=== PATIENT | male | born 1945 | race Caucasian/White ===

== ENCOUNTER 2019-06-12 07:35 | Inpatient (IN) | payer OTHER ==
[~2019-06-12] VITALS: Ht 190.5 cm; Wt 128.6 kg
[~2019-06-12 07:35] MED LIST: METO-5 PO
[2019-06-12 08:12] LABS: Basophils # (auto) 0.1 uL; Basophils % (auto) 0.8 % (0.0-2.0); Eosinophils # (auto) 0 uL; Eosinophils % (auto) 0.3 % (0.0-7.0); Hematocrit 37.3 % (41.0-53.0); Hemoglobin 12.1 g/dL (13.5-17.5); Lymphocytes # (auto) 0.8 uL; Lymphocytes % (auto) 9.7 % (10.0-50.0); Mean Corpuscular Hemoglobin 28.1 pg (28.0-32.0); Mean Corpuscular Hgb Conc. 32.5 g/dL (32.0-36.0); Mean Corpuscular Volume 86.3 fL (80.0-100.0); Monocytes # (auto) 0.5 uL; Monocytes % (auto) 6.3 % (0.0-12.0); Neutrophils # (auto) 6.6 uL; Neutrophils % (auto) 82.9 % (37.0-80.0); Platelet Count (auto) 407 10^3/uL (140-450); Red Blood Cells 4.32 10^6/uL (4.5-5.90); Red Cell Distribution Width 14.8 % (11.8-14.3)
[2019-06-12 08:26] LABS: Anion Gap 5 (5-15); Blood Urea Nitrogen 18 mg/dL (7-18); Calcium 8.8 mg/dL (8.5-10.1); Carbon Dioxide 32 mmol/L (21-32); Chloride 104 mmol/L (98-107); Glucose 107 mg/dL (74-106); Magnesium 2.1 mg/dL (1.6-2.6); Potassium 5.1 mmol/L (3.5-5.1); Sodium 141 mmol/L (136-145)
[2019-06-12 08:29] LABS: INR 1.06 (0.9-1.15); Partial Thromboplastin Time 28.5 sec (23.64-32.05)
[2019-06-12 08:32] LABS: Alanine Aminotransferase 25 U/L (16-61); Alkaline Phosphatase 74 U/L (45-117); Aspartate Aminotransferase 28 U/L (15-37); BUN/Creatinine Ratio 16.7; Bilirubin, Total 1.6 mg/dL (0.2-1.0); GFR African American 86 mL/min; GFR Non-African American 71 mL/min; Total Protein 8.4 g/dL (6.4-8.2)
[2019-06-12 09:02] LABS: Urine Bacteria NONE SEEN /hpf (None Seen); Urine Blood Negative /uL (Negative); Urine Mucus FEW (None Seen); Urine Specific Gravity 1.015 (1.001-1.035); Urine WBC 1 /hpf (0 - 3)
[2019-06-12] MEDS ORDERED: HYDROcodone-ACET 5/325MG TAB PO PRN (17:45)
[2019-06-12] MEDS ORDERED: ONDANSETRON HCL 4 MG/2 ML VIAL IV PRN (17:45)
[2019-06-12] MEDS ORDERED: ACETAMINOPHEN 500 MG TAB PO PRN (17:45)
[2019-06-12] MEDS ORDERED: SODIUM CHLORIDE 0.9% 1,000 ML IV ONE (17:45)
[2019-06-12] MEDS ORDERED: MORPHINE SULF INJ 2 MG/ML SYRINGE 1ML IV PRN ×2 (17:45)
[2019-06-12] MEDS ORDERED: DOCUSATE SOD 100 MG CAP PO PRN (17:45)
[2019-06-12] MEDS ORDERED: NITROGLYCERIN 0.4 MG SL TAB SL PRN (17:45)
--- NOTE | 2019-06-12 19:55 | NUR ---
Telemetry admit from [facility] admitted to Telemetry unit. Patient oriented to Marci BrownRN primary RN, unit, room, bed, and unit policies regarding patient care and visiting hours. Patient now on continuous telemetry monitoring, tele box #74 and telemetry reading on arrival to unit is NSR. AAOx4. No acute S/S of distress, SOB or pain. On room air and ambulatory. Small scabs to left leg and ankle noted. Band aid and gauze dressings CDI. Patient weighed by bed scale and encouraged to call if they need something. All questions and concerns addressed, patient verbalized understanding. Bed in lowest locked position, side rails up x2, call light within reach. Will continue to monitor every hour and as needed.
[2019-06-12] MEDS ORDERED: LEVO25TA6 PO (21:14)
[2019-06-12] MEDS ORDERED: LISI10TA6 PO (21:14)
[2019-06-12] MEDS ORDERED: [UNRECOGNIZED DRUG - CODE] PO (21:14)
[2019-06-12 22:00] VITALS: BP 146/84
[2019-06-12] MEDS: METOPROLOL TARTRATE 25 MG TAB PO SCH (22:20)
[2019-06-13 05:00] VITALS: BP 127/72
--- NOTE | 2019-06-13 06:31 | NUR ---
Spoke with family member Son, Gio called from [place] requesting information on patient status. Asked to please be informed after doctor rounds on patient to know the POC. Told son I would relay to [facility] RN to call him at [phone] with updated information.
--- NOTE | 2019-06-13 07:48 | NUR ---
Opening Shift Note Assumed care of patient, awake and alert. No S/S of distress/SOB or pain. Instructed on POC and to call for assist PRN, will continue to monitor for changes Q1hr and PRN.
[2019-06-13 08:57] VITALS: BP 137/67
[2019-06-13] MEDS: FAMOTIDINE 20 MG TAB PO SCH (10:10)
[2019-06-13] MEDS: ASPirin 81 mg TAB PO SCH (10:10)
[2019-06-13] MEDS: METOPROLOL TARTRATE 25 MG TAB PO SCH ×2 (10:10→21:49)
--- NOTE | 2019-06-13 11:00 | NUR ---
PT REFUSING TO LET RN ASSESS WOUNDS ON FEET UNDER DRESSING
[2019-06-13 13:00] VITALS: BP 120/58
--- NOTE | 2019-06-13 16:43 | NUR ---
assessment Patient is a 74 year old male who is alert and oriented. Patients cognitive abilities are intact. Prior to admission patient lived home alone and functioned independently. Patient informed me he is able to care for his own ADLs. Per patient he is requesting SNF on discharge due to weakness. Patient to be assessed by PT. Patient informed me he has a fww and a cane for home use. Patients PCP is Dr Perez. I informed patient he has a right to speak to a 7th grade social studies teacher regarding all care. I informed patient he has a right to participate in any and all discharge planning. Patient has a POA and advanced directive. Patient verbalized understanding and agreed to discharge plan. Addendum: 06/13/19 at 1645 by Ann Marie RAMOS Amended: Links added.
[2019-06-13 16:54] VITALS: BP 118/63
--- NOTE | 2019-06-13 18:00 | NUR ---
PT ALLOWED RN TO ASSESS DRESSING NO OPEN WOUNDS UNDER FEET. DRY SCABS AROUND HEEL. PT STATES HE CLEANS THEM WITH SALINE.
--- NOTE | 2019-06-13 19:00 | NUR ---
OPENING NOTE- NOC SHIFT PATIENT IS ALERT AND ORIENTED X3, UNABLE TO STATE CORRECT DATE/YEAR. PATIENT IS IN BED. BED IS LOCKED IN LOWEST POSITION, BEDSIDE TABLE WITHIN REACH, PERSONAL BELONGINGS WITHIN REACH. DISCUSSED POC WITH PATIENT AND INSTRUCTED PATIENT TO CALL PRN; PATIENT VERBALIZED UNDERSTANDING. PATIENT SMELLS LIKE URINE, WILL PROVIDE BED BATH AND CHANGE BED LINEN. PATIENT HAS URINAL AT BEDSIDE BUT HAS TROUBLE USING IT BECAUSE HIS PENIS RETRACTS; INSTRUCTED PATIENT TO CALL FOR HELP USING URINAL. WILL CONTINUE TO MONITOR Q1H AND PRN.
--- NOTE | 2019-06-13 19:20 | NUR ---
BED BATH AND COMPLETE LINEN CHANGE WITH HELP OF NURSE WEED ERADICATOR RAFAELA. PATIENT TOLERATED WELL.
--- NOTE | 2019-06-13 19:55 | NUR ---
ORTHOSTATIC BP PATIENT UNABLE TO STAND UP FOR ORTHOSTATIC BP ORDERED BY MD. BP WAS TAKEN SUPINE 134/75. 3 MINUTES LATER BP WAS TAKEN SITTING IN BED, DANGLING FEET 141/85.
[2019-06-13 20:00] VITALS: BP 139/75
[2019-06-13] MEDS ORDERED: LORazepam 2MG/ML-1ML VIAL IV PRN (20:00)
--- NOTE | 2019-06-13 20:00 | NUR ---
DR MONAE AT BEDSIDE
--- NOTE | 2019-06-13 20:11 | NUR ---
PATIENT REFUSES PSYCH CONSULTATION PATIENT STATES THAT HE DOES NOT WANT TO SEE A PSYCHIATRIST, HE STATES THAT ALL THEY WANT TO KNOW IS ABOUT HIS REFUSED. DR MONAE AWARE.
[2019-06-13 21:57] LABS: Folate (Folic Acid) 15.73 ng/mL (5.38-24)
[2019-06-13 22:00] VITALS: BP_SYST 139; BP_SYST 141; BP_DIAS 75; BP_DIAS 85
--- NOTE | 2019-06-13 23:54 | NUR ---
PATIENT IS REQUESTING HELP FOR USE OF URINAL APPROX EVERY 40 MINUTES. OUTPUT PER USE IS APPROX [id number] MLS.
[2019-06-14] VITALS (7 sets, daily range): BP systolic 118–156; BP diastolic 62–91
--- NOTE | 2019-06-14 05:00 | NUR ---
UNABLE TO OBTAIN ORTHOSTATIC BP PATIENT IS UNABLE TO STAND; PATIENT REPORTS THAT HE FEELS WEAK AT THE KNEES AND STATES THAT HE DOES NOT HAVE ENOUGH STRENGTH TO STAY UP. BP WAS TAKEN LAYING SUPINE POSITION 141/70, 3 MINUTES LATER BP WAS TAKEN SITTING AT EDGE OF BED DANGLING FEET 135/68.
[2019-06-14 06:33] LABS: Basophils # (auto) 0 uL; Basophils % (auto) 0.5 % (0.0-2.0); Eosinophils # (auto) 0 uL; Eosinophils % (auto) 0.5 % (0.0-7.0); Hematocrit 39.1 % (41.0-53.0); Hemoglobin 12.8 g/dL (13.5-17.5); Lymphocytes % (auto) 11.3 % (10.0-50.0); Mean Corpuscular Hemoglobin 28.3 pg (28.0-32.0); Mean Corpuscular Hgb Conc. 32.8 g/dL (32.0-36.0); Mean Corpuscular Volume 86.3 fL (80.0-100.0); Monocytes # (auto) 0.8 uL; Monocytes % (auto) 8.2 % (0.0-12.0); Neutrophils # (auto) 7.4 uL; Neutrophils % (auto) 79.5 % (37.0-80.0); Platelet Count (auto) 391 10^3/uL (140-450); Red Blood Cells 4.53 10^6/uL (4.5-5.90); Red Cell Distribution Width 14.5 % (11.8-14.3); White Blood Cell 9.3 10^3/uL (4.4-10.8)
[2019-06-14 07:05] LABS: Potassium 4.6 mmol/L (3.5-5.1)
[2019-06-14 07:10] LABS: BUN/Creatinine Ratio 20.2; Calcium 8.2 mg/dL (8.5-10.1); Magnesium 1.9 mg/dL (1.6-2.6)
--- NOTE | 2019-06-14 07:10 | NUR ---
ENDORSED PATIENT CARE TO DAY SHIFT NURSE AMINA REYES. NO S/SX OF DISTRESS, SOB OR PAIN.
--- NOTE | 2019-06-14 09:50 | NUR ---
UPDATED MARV BOSE ON POC. PASSWORD VERIFIED.
[2019-06-14] MEDS: ASPirin 81 mg TAB PO SCH (10:17)
[2019-06-14] MEDS: METOPROLOL TARTRATE 25 MG TAB PO SCH ×2 (10:18→21:50)
[2019-06-14] MEDS: FAMOTIDINE 20 MG TAB PO SCH (10:18)
--- NOTE | 2019-06-14 12:35 | NUR ---
ROUNDING MD. JAY AT BEDSIDE. ALL QUESTIONS AND CONCERNS ADDRESSED AT THIS TIME.
--- NOTE | 2019-06-14 15:07 | NUR ---
re-assessment Per consult living condition. Please see my initial assessment dated 06/13/19. Addendum: 06/14/19 at 1515 by Ann Marie Bloom Amended: Links added.
--- NOTE | 2019-06-14 19:20 | NUR ---
OPENING NOTE- NOC SHIFT PATIENT IS RESTING COMFORTABLE IN BED. NO S/SX OF DISTRESS, SOB OR PAIN. BEDSIDE TABLE WITHIN REACH, CALL LIGHT WITHIN REACH. DISCUSSED POC WITH PATIENT AND INSTRUCTED PATIENT TO CALL PRN; PATIENT VERBALIZES UNDERSTANDING. WILL CONTINUE TO MONITOR Q1H AND PRN.
[2019-06-15 05:18] VITALS: BP 138/70
[2019-06-15 08:06] LABS: Immunoglobulin G, Serum 2150 mg/dL (700-1600)
[2019-06-15 09:00] VITALS: BP 129/72
[2019-06-15] MEDS: ASPirin 81 mg TAB PO SCH (09:05)
[2019-06-15] MEDS: FAMOTIDINE 20 MG TAB PO SCH (09:06)
[2019-06-15] MEDS: METOPROLOL TARTRATE 25 MG TAB PO SCH (09:06)
[2019-06-15] MEDS ORDERED: CYANOCOBALAMIN (B-12) 1000 MCG/1 ML VIAL IM ONE (09:15)
[2019-06-15] MEDS ORDERED: CYANOCOBALAMIN 500 MCG TAB PO SCH (10:00)
--- NOTE | 2019-06-15 11:38 | NUR ---
SNF per Mayuri Adams at [facility], pt can go to [facility] rm [id number]. Ann Marie RAMOS is assisting me with transport of this pt to [facility]. Ann Marie stated she would set up transport for 1400 hrs
[2019-06-15 13:00] VITALS: BP 126/70
--- NOTE | 2019-06-15 14:30 | NUR ---
CALLED REPORT TO AMINA ROQUE.
--- NOTE | 2019-06-15 14:47 | NUR ---
PATIENT TRANSFERRED BY JORGE ALBERTO WITH [facility] TO [facility]. ALL BELONGINGS TAKEN WITH PATIENT.
--- NOTE | 2019-06-15 16:10 | NUR ---
Discharge planning per consult, patient has orders to dc to SNF. Referral sent by the [facility] to [facility]. Placed a follow up call, spoke with Berenice and was advised that they are accepting the patient into room 37 bed A. She was awaiting the Health Plans following provider information. Transportation was arranged with [facility] and grain picker was schedule for 3pm. Nurse was advised of dc plan. Addendum: 06/15/19 at 1613 by PINKY BALDWIN Amended: Links added.
== END 2019-06-15 14:30 | DRG 312 ==
LOC: EDBD 07:35 → ER 07:41 → TELE 07:42 → TELE-WESTW 20:27
PROVIDERS: ADMIT Nurse Practitioner Acute Care; ATTEND Internal Medicine
DX: R55 Syncope and collapse (principal); D68.59 Other primary thrombophilia; M86.60 Other chronic osteomyelitis, unspecified site; I48.20 Chronic atrial fibrillation, unspecified; I48.0 Paroxysmal atrial fibrillation; R62.7 Adult failure to thrive; I10 Essential (primary) hypertension; E66.9 Obesity, unspecified; D64.9 Anemia, unspecified; L97.509 Non-pressure chronic ulcer of other part of unspecified foot with unspecified severity; Z60.2 Problems related to living alone; E03.9 Hypothyroidism, unspecified; E05.90 Thyrotoxicosis, unspecified without thyrotoxic crisis or storm; F17.200 Nicotine dependence, unspecified, uncomplicated; F22 Delusional disorders; G89.29 Other chronic pain; Z68.35 Body mass index [BMI] 35.0-35.9, adult; Z79.899 Other long term (current) drug therapy
CPT/HCPCS: 36415; 70450; 70551; 71045; 72131; 80048; 80053; 81001; 82607; 82746; 82784; 83036; 83735; 84443; 84484; 85025; 85610; 85730; 86334; 93005; 93306; 93886; 96360; 97110; 97116; 97530; G0378

== ENCOUNTER 2021-04-19 14:37 | Emergency (ER) | payer MEDICARE, OTHER ==
[~2021-04-19] VITALS: Ht 188 cm; Wt 131.1 kg
[~2021-04-19 14:37] MED LIST changes: +LEVO25TA6 PO; +LISI-716 PO; -METO-5 PO; +METO1TAB77 PO; +[UNRECOGNIZED DRUG - CODE] PO
[2021-04-19 15:18] LABS: Basophils # (auto) 0 10 ^3/uL (0-0.2); Eosinophils # (auto) 0.6 10 ^3/uL (0-0.8); Hemoglobin 10.6 g/dL (13.5-17.5); Lymphocytes # (auto) 1.6 10 ^3/uL (0.4-5.4); Monocytes # (auto) 0.5 10 ^3/uL (0-1.3); Neutrophils # (auto) 3.9 10 ^3/uL (1.6-8.6); Nucleated Red Blood Cells % 0.1 %
[2021-04-19 15:21] LABS: Basophils % (auto) 0.2 % (0.0-2.0); Eosinophils % (auto) 8.5 % (0.0-7.0); Hematocrit 33.8 % (41.0-53.0); Mean Corpuscular Hemoglobin 26.3 pg (28.0-32.0); Mean Corpuscular Hgb Conc. 31.3 g/dL (32.0-36.0); Monocytes % (auto) 7.2 % (0.0-12.0); Neutrophils % (auto) 60.1 % (37.0-80.0); Red Blood Cells 4.02 10^6/uL (4.5-5.90); Red Cell Distribution Width 17.1 % (11.8-14.3); White Blood Cell 6.5 10^3/uL (4.4-10.8)
[2021-04-19 15:37] LABS: Albumin 2.5 g/dL (3.4-5.0); Anion Gap 5 (5-15); Blood Urea Nitrogen 14 mg/dL (7-18); Calcium 8.5 mg/dL (8.5-10.1); Carbon Dioxide 29 mmol/L (21-32); Chloride 107 mmol/L (98-107); Glucose 109 mg/dL (74-106); Potassium 4.6 mmol/L (3.5-5.1); Sodium 141 mmol/L (136-145)
[2021-04-19 15:40] LABS: BUN/Creatinine Ratio 19.2; GFR African American 134 mL/min; GFR Non-African American 111 mL/min
[2021-04-19 15:57] LABS: Alanine Aminotransferase 8 U/L (16-61); Alkaline Phosphatase 101 U/L (45-117); Aspartate Aminotransferase 19 U/L (15-37); Bilirubin, Total 0.2 mg/dL (0.2-1.0); Total Protein 7.3 g/dL (6.4-8.2)
[2021-04-19 17:55] VITALS: BP 120/67
== END 2021-04-19 19:00 | disposition home or self-care (01) ==
LOC: ER 14:37 → EDBD 14:37 → EDUNIT# 14:37 → ER 19:00
DX: L03.116 Cellulitis of left lower limb (principal); D64.9 Anemia, unspecified; E46 Unspecified protein-calorie malnutrition; Z68.37 Body mass index [BMI] 37.0-37.9, adult; I10 Essential (primary) hypertension; Z79.899 Other long term (current) drug therapy
CPT/HCPCS: 36415; 71045; 73700; 80053; 84484; 85025